=== PATIENT | male | born 1995 | race Caucasian/White ===

== ENCOUNTER 2016-10-13 12:34 | Emergency (ER) | payer BC, OTHER ==
[2016-10-13] MEDS ORDERED: Lidocaine 1% 20 ML MDV INJECT ONE (12:58)
[2016-10-13] MEDS ORDERED: Diphtheria,Pertussis(Acell),Tetanus Vaccine 0.5 ML Syringe IM ONE (13:02)
--- NOTE | 2016-10-13 13:23 | EDM.PDOC ---
ED HPI Skin/Rash - General Chief Complaint: Laceration Stated Complaint: CUT FINGER OPEN Time Seen by Provider: 10/13/16 12:42 Source: Reports: Patient History Limitations: Reports: No limitations - History of Present Illness INITIAL COMMENTS - FREE TEXT/NARRATIVE: Presents reporting that he was working on a matt wire fence when he got away from him and he lacerated his right index finger on the PIP joint on the palmar side. Full flex and extend was demonstrated multiple times without limitation. - Related Data Allergies Allergy/AdvReac Type Severity Reaction Status Date / Time No Known Allergies Allergy Verified 09/13/15 17:29 Home Meds: Ambulatory Orders Medication Instructions Recorded Confirmed . [No Known Home Meds] 09/13/15 09/13/15 Past Medical History - Past Surgical History Cardiovascular Surgical History: Reports: Cardiac Ablation Social & Family History - Family History Family Medical History: Noncontributory - Tobacco Use Smoking Status *Q: Never Smoker - Recreational Drug Use Recreational Drug Use: No ED ROS GENERAL - Review of Systems Review Of Systems: ROS reveals no pertinent complaints other than HPI. ED EXAM, SKIN/RASH Exam: See Below General Appearance: alert, no apparent distress Ears: normal external exam Nose: normal inspection Throat/Mouth: Normal inspection Head: atraumatic, normocephalic Neck: normal inspection Respiratory/Chest: no respiratory distress Cardiovascular: normal peripheral pulses, no murmur GI/Abdominal: soft Extremities: other (Right second digit on the palmar side the PIP joint so 1 cm straight laceration. Full flex and extend were demonstrated multiple times. CMS intact distally.) Neurological: alert, oriented, normal cognition Psychiatric: normal affect, normal mood ED SKIN PROCEDURES - Laceration/Wound Repair Right Finger Appearance: superficial Distal NVT: neuro & vascular intact Anesthetic type: local Local anesthesia - Lidocaine (Xylocaine): 1% plain Local anesthetic volume: 3cc Skin prep: chlorhexidine (hibiciens), other (scrub brush) Exploration/Debridement/Repair: wound explored, in a bloodless field, explored to base Closed with: sutures Suture size: 4-0 # of sutures: 3 Suture type: nylon, interrupted Course - Orders/Labs/Meds Orders: Active Orders 24 hr Category Date Time Status Vaccines to be Administered [RC] PER UNIT ROUTINE Care 10/13/16 13:02 Active Meds: Medications Discontinued Medications Generic Name Dose Route Start Last Admin Trade Name Freq PRN Reason Stop Dose Admin Diphtheria/Tetanus/Acell Pertussis 0.5 ml 10/13/16 13:02 Adacel IM 10/13/16 13:03 .ONCE ONE Lidocaine HCl 20 ml 10/13/16 12:58 Xylocaine 1% INJECT 10/13/16 12:59 ONETIME ONE Departure - Departure Time of Disposition: 13:21 Disposition: Home, Self-Care 01 Condition: good Clinical Impression: Laceration Forms: ED Department Discharge Additional Instructions: 1. keep wound clean and dry. Keep covered and wear a leather glove if you continue to do outdoors or fencing work. 2. watch for signs of infection: Redness, purulent drainage, swelling and tenderness return promptly 3. suture removal in 10-14 days here, urgent care or records 's office - My Orders Last 24 Hours: My Active Orders 10/13/16 13:02 Vaccines to be Administered [RC] PER UNIT ROUTINE - Assessment/Plan Last 24 Hours: My Active Orders 10/13/16 13:02 Vaccines to be Administered [RC] PER UNIT ROUTINE
[2016-10-13 13:28] VITALS: BP 130/79
== END 2016-10-13 13:31 | disposition home or self-care (01) ==
LOC: MW.ED 12:34
DX: S61.210A Laceration without foreign body of right index finger without damage to nail, initial encounter (principal); Z23 Encounter for immunization; W45.8XXA Other foreign body or object entering through skin, initial encounter
CPT/HCPCS: 12001; 90471; 90715; 99282; 99282-25